=== PATIENT | male | born 1940 | race Caucasian/White ===

== ENCOUNTER → 2018-04-04 11:27 | Outpatient (CLI) | payer MEDICARE, BC, SELFPAY ==
[2018-04-04 11:37] LABS: Bacteria 0 SEEN /hpf (None Seen); Mucous, Urine 0 SEEN /hpf (<or=2+); Red Blood Cells-Urine 0 SEEN /hpf (0-5); White Blood Cells 0 SEEN /hpf (0-5)
[2018-04-04 14:40] LABS: Color, Urine Yellow (Yellow); Glucose, Dipstick 250 mg/dl (Normal); Ketone-Dipstick Negative (Negative); Leukocyte Esterase-Dipstick Negative /ul (Negative); Nitrite-Dipstick Negative (Negative); Occult Blood-Urine Negative /ul (Negative); Protein-Dipstick 30 mg/dl (Negative); Specific Gravity, Urine 1.025 (1.002-1.030); Urine Bilirubin Dipstick Negative (Negative); Urine Clarity Clear (Clear); Urine Urobilinogen Normal (Normal)
[2018-04-04 14:42] LABS: Absolute Lymphocyte Count 1.25 X10^3/ul (0.83-4.51); Absolute Neutrophil Count 3.9 X10^3/uL (2.0-7.7); Basophil# 0.03 X10^3/uL; Basophil% 0.5 % (0-1); Eosinophil# 0.09 X10^3/uL; Eosinophils% 1.6 % (0-5); Hematocrit 41.7 % (40-54); Hemoglobin 14.6 g/dl (13.0-16.5); Lymphocyte # 1.25 X10^3/ul (4.0); Lymphocyte % 21.9 % (19-41); Mean Corpuscular Hgb 32.9 pg (27.0-32.0); Mean Corpuscular Volume 93.9 fL (80-94); Mean Platelet Vol. 9.9 fl (6.2-12.0); Monocyte# 0.41 X10^3/uL; Monocyte% 7.2 % (0-10); Neutrophil % 68.3 % (47-70); Platelet Count 180 K/mm3 (150-450); RBC Distribution Width CV 13.3 % (11.6-14.6); RBC Distribution Width SD 43.9 fl (35.1-43.9); Red Blood Count 4.44 M/mm3 (4.6-6.2); White Blood Count 5.7 K/mm3 (4.4-11.0)
[2018-04-04 14:43] LABS: POSITIVE COUNT NO; POSITIVE DIFFERENTIAL NO; POSITIVE MORPHOLOGY NO
[2018-04-04 14:46] LABS: Squamous Epithelial Cells - UA 0-5 SEEN /hpf (0-5)
[2018-04-04 15:05] LABS: Vitamin B12 409 pg/mL (211-911)
[2018-04-04 15:07] LABS: Hemoglobin A1c 7.4 % (4.2-6.3)
[2018-04-04 15:16] LABS: Microalbumin:Creatinine Ratio 12.6 mg/g CRE (<30 mg/g CRE)
[2018-04-04 15:20] LABS: ALB/GLOB Ratio 1.1 RATIO (0.9-2.4); AST(SGOT) 24 U/L (15-37); Alanine Aminotransfer ALT/SGPT 35 U/L (16-61); Albumin, Serum 3.8 g/dL (3.2-5.0); Alkaline Phosphatase 91 U/L (45-117); Anion Gap 11 (5-15); BUN 14 mg/dL (7-18); BUN/Creat Ratio 12.4 RATIO (10-20); Chloride 104 mmol/L (98-107); Cholesterol 150 mg/dL (200); Creatinine, Serum 1.13 mg/dL (0.70-1.30); EST Glomerular Filtration Rate 67 mL/min (>60); Est Glom Filt Rate - Afr Amer 81 mL/min (>60); Globulin 3.6 g/dL (2.2-4.2); Glucose 191 mg/dL (74-106); High Density Lipoprotein 34 mg/dL; Magnesium 1.9 mg/dL (1.6-2.6); PSA,Total- Diagnostic < 0.01 ng/mL (0.0-4.0); Phosphorus 2.9 mg/dL (2.5-4.9); Potassium 4.2 mmol/L (3.5-5.1); Protein, Total 7.4 g/dL (6.4-8.2); Sodium Level 138 mmol/L (136-145); T4 Free Direct 0.76 ng/dL (0.76-1.46); Thyroid Stim Hormone (TSH) 3.57 uIU/mL (0.358-3.74); Triglycerides 355 mg/dL; Very Low Density Lipoprotein 71 mg/dL (5-40)
[2018-04-09 11:53] LABS: Vitamin B1, Thiamine 132.5 nmol/L (66.5-200.0)
== END ==
PROVIDERS: Visit Provider Family Medicine
DX: I10 Essential (primary) hypertension (principal); I48.91 Unspecified atrial fibrillation; E11.40 Type 2 diabetes mellitus with diabetic neuropathy, unspecified; E01.0 Iodine-deficiency related diffuse (endemic) goiter; Z85.46 Personal history of malignant neoplasm of prostate; G62.9 Polyneuropathy, unspecified
CPT/HCPCS: 36415; 80053; 80061; 81001; 82043; 82570; 82607; 83036; 83735; 84100; 84153; 84425; 84439; 84443; 85025

== ENCOUNTER → 2018-04-06 08:53 | Outpatient (CLI) | payer MEDICARE, SELFPAY ==
--- NOTE | 2018-04-06 09:01 | US_ITS ---
STUDY: THYROID ULTRASOUND REASON FOR EXAM: Male, 77 years old. Thyromegaly TECHNIQUE: Ultrasound evaluation of the thyroid was performed with real-time and static valdes-scale imaging. COMPARISON: None. FINDINGS: RIGHT LOBE: The right lobe of the thyroid gland measures 4.0 x 1.3 x 1.5 cm. There is a homogeneous echotexture. There are no demonstrated solid, cystic or complex lesions. LEFT LOBE: The left lobe of the thyroid gland measures 3.8 x 1.3 x 1.0 cm. There is a homogeneous echotexture. There are no demonstrated solid, cystic or complex lesions. ISTHMUS: The isthmus measures 6 mm . The regional lymph nodes are normal. US/Thyroid IMPRESSION: Normal ultrasound examination of the thyroid. Electronically Signed: Bayron Mckeon DO at 15:54 EDT Tel [phone], Service support ,
== END ==
PROVIDERS: Family Provider Family Medicine; PCP Family Medicine; Referring Provider Family Medicine; Visit Provider Family Medicine
DX: E01.0 Iodine-deficiency related diffuse (endemic) goiter (principal)
CPT/HCPCS: 76536

== ENCOUNTER → 2018-05-01 06:41 | Outpatient (CLI) | payer MEDICARE, SELFPAY ==
--- NOTE | 2018-05-01 06:52 | MRI_ITS ---
STUDY: MRI BRAIN WITH AND WITHOUT CONTRAST (ATTENTION PITUITARY GLAND) REASON FOR EXAM: Male, 77 years old. pituitary adenoma, ? prev stroke; prev mri 12/2017 TECHNIQUE: Standardized multiplanar fat and water weighted pulse sequences were obtained. 10 ml of Gadavist contrast material was administered intravenously for the contrast portion of the examination. COMPARISON: December 05, 2017 FINDINGS: Again noted. Sellar mass measuring 1.6 x 1.6 x 1.4 cm without change since prior examination. 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 Normal size of the ventricles and extra-axial spaces for the patient's age. There are a limited number of small white matter hyperintensities, distributed throughout the deep white matter tracts of the cerebral hemispheres, consistent with mild chronic white matter ischemic changes. Normal bilateral basal ganglia. Normal thalami. Normal flow voids within the major intracranial circulation suggesting patency by spin echo criteria. Normal venous enhancement. There is no enhancing intra-axial or extra-axial abnormality. There is no extra-axial fluid accumulation. Normal tectal plate and pineal gland. Normal midbrain, dwight and medulla. Normal cerebellum. Normal basal cisterns. MRI/Brain W/WO Contrast IMPRESSION: No acute intracranial abnormality. 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 Electronically Signed: Jl Pelayo MD at 16:07 EST Tel , Service support ,
[2018-05-01 07:50] LABS: CREATININE FINGERSTICK 1.2 mg/dL (0.70-1.30); EGFR FINGERSTICK > 60.0000 mL/min (>60)
--- OUTSIDE RECORDS SUMMARY | 2018-06-12 19:41 | XMS RPT_ITS ---
:1940 Author Organization OHIP Care Team Providers Name Role Phone Dawson De La Rosa Attending Unavailable Dawson De La Rosa Attending Unavailable Dawson De La Rosa Referring Unavailable Dawson De La Rosa Primary Care Unavailable Dawson De La Rosa Attending Unavailable Dawson De La Rosa Referring Unavailable Dawson De La Rosa Primary Care Unavailable Ratna Castro Attending Unavailable Jordy Araujo Attending Unavailable PROBLEMS PROBLEMS DATE TYPE CONDITION / CODE ATTENDING STATUS SOURCE 05/21/2018 Unknown I10 - Essential Jordy Araujo (primary) Community hypertension / Hospital I10(ICD-10) Repository 05/21/2018 Unknown I25.10 - Jordy Araujo Active [facility] Atherosclerotic heart Community disease of [facility] coronary artery Repository without angina pectoris / I25.10(ICD-10) 05/21/2018 Unknown I48.0 - Paroxysmal MoodJordy kline Active [facility] atrial fibrillation / Community I48.0(ICD-10) Hospital Repository 05/21/2018 Unknown E78.5 - Jordy Araujo Active [place] Hyperlipidemia, Community unspecified / Hospital E78.5(ICD-10) Repository 05/04/2018 Unknown E01.0 - Dawosn De La Rosa Active [facility] 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 [place] [address] OFFICE VISIT Date of Service: 05/03/18 MR#: [id number] Acct: [id number] Name: MONTSERRAT ARVIZU Rep #: [id number] : 1940 Provider: Jordy Araujo MD Age/Sex: 77/M [place] [facility] Signed HPI HPI Details: MONTSERRAT ARVIZU, is a 77 M who presents to the office today for outpatient cardiovascular consultation to establish care for history of underlying CAD/intramyocardial bridge as well as paroxysmal atrial fibrillation. He states while living in [place] he underwent evaluation and care for the aforementioned concerns. He noted he had concerns of chest discomfort and palpitations which led over time to his different cardiovascular evaluation. At the present time he states he is done well. He states he can sense when he goes in and out of atrial fibrillation. However he states these episodes have been relatively rare and brief. He has had no near syncope or syncope. He does not complain of ongoing chest discomfort or difficulty breathing. He has had no falling episodes/injuries. He did have an ECG today. He was noted to be in sinus rhythm with a first-degree AV block with a leftward axis with poor R wave progression. An ECG from 09/13/2017 was available for review which demonstrated that time a report of atrial flutter with variable AV block with a left axis deviation. It appears he had an event monitor in September of this year. At that time he was noted to have 2 episodes of atrial fibrillation with controlled ventricular response. It also appears that he had a stress echocardiogram performed in September of this year. Based upon the impression he had no evidence of myocardial ischemia or infarction. The left ventricle was reported as normal with respect to function. There are comments and previous outpatient medical records from his previous physicians in [place] that he had a history of CAD which included an intramyocardial bridge. He required no type of interventional/revascularization therapy. Intake Vital Signs05/03/18 Height 6 ft 2 in 05/03/18 Weight: 244 lb 05/03/18 Body Mass Index (BMI) 31.3 05/03/18 Blood Pressure 124/60 H Intake Visit Reasons: A-fib/ HTN/ Ref. Dr. De La Rosa Allergies No Known Allergies Allergy (Verified 05/03/18 14:05) Medications B-complex with vitamin C capsule 1 cap PO DAILY 05/03/18 [History Confirmed 05/03/18] apixaban 5 mg tablet 5 mg PO BID 05/03/18 [History Confirmed 05/03/18] glipizide 10 mg tablet 10 mg PO BID 05/03/18 [History Confirmed 05/03/18] lisinopril 20 mg tablet 30 mg PO DAILY tab 05/03/18 [History Confirmed 05/03/18] magnesium oxide 400 mg capsule 400 mg PO DAILY cap 05/03/18 [History Confirmed 05/03/18] metformin ER 500 mg tablet,extended release 24 hr 500 mg PO BID tab 05/03/18 [History Confirmed 05/03/18] metoprolol tartrate 25 mg tablet 12.5 mg PO BID tab 05/03/18 [History Confirmed 05/03/18] potassium chloride ER 10 mEq tablet,extended release 10 meq PO DAILY 05/03/18 [History Confirmed 05/03/18] pravastatin 20 mg tablet 20 mg PO DAILY 05/03/18 [History Confirmed 05/03/18] primidone 50 mg tablet 50 mg PO BID tab 05/03/18 [History Confirmed 05/03/18] sitagliptin 100 mg tablet 100 mg PO DAILY 05/03/18 [History Confirmed 05/03/18] [facility] Medical History Paroxysmal atrial fibrillation (Chronic) Atherosclerotic heart disease of [place] coronary artery without angina pectoris (Chronic) Type 2 diabetes mellitus (Chronic) Diabetic neuropathy (Chronic) Essential hypertension (Chronic) Essential tremor (Acute) History of stroke (Acute) History of prostate cancer (Chronic) Pituitary adenoma (Chronic) Atrial fibrillation (Inactive) Surgical History History of cataract surgery (Resolved) History of prostate surgery (Resolved) Family History Mother CVA (cerebral vascular accident) Hypertension Heart disease Father CVA (cerebral vascular accident) Cancer Liver Social History Smoking Status: Never smoker alcohol intake: never substance use type: does not use ROS Const Const: Negative for fatigue, weakness, weight gain, weight loss, frequent falls or excessive sweating Eyes Eyes: Negative for change in vision, blurry vision or transient loss of vision ENT ENT: Positive for dizziness (bending over, moving head up/down) and balance problems (unsteadiness, diabetic neuropathy) Cardio Chest Pain: No Palpitations: Yes (Rare) feels like its: irregular Edema: None Muscle aches with walking: None Resp Respiratory: Negative for SOB with activity or SOB at rest GI GI: Negative vomiting or vomiting blood/hematemesis : Negative for hematuria Musc Musc: Positive for balance problems (unsteadiness, diabetic neuropathy) and muscle weakness (bilat LE); negative for muscle aches/ myalgia or joint pain Skin Skin: Negative non-healing lesions or rash Neuro Neuro: Positive for dizziness (bending over, moving head up/down) and other (couple falls w/o injury due to diabetic neuropathy); negative for weakness, blurry vision, lightheadedness, frequent falls or orthostatic symptoms [place] Hematologic/Lymphatic: Negative for easy bleeding Endo Endo: Negative for fatigue or excessive sweating Psych Psych: Negative for anxiety or depression Allergy Allergy/Immunology: Negative for hives, Negative for rash Cardiology Exam Const Appearance: cooperative, healthy appearing, comfortable, no acute distress, well developed and well groomed Nutritional Appearance: overweight Orientation: alert, awake and oriented x3 Head Head: normal to inspection, normocephalic and atraumatic Ears: hearing grossly normal bilaterally Nose: external nose normal Face and Sinus: face symmetric Mouth: oral mucosae normal Eyes Eyelids: eyelids normal Conjunctivae: conjunctivae normal Pupils: PERRL EOM: EOM intact bilaterally Neck Neck: normal visual inspection and full ROM Carotids: normal carotid upstroke Chest Chest inspection: normal inspection of the chest, symmetric chest movement and normal respiratory effort Auscultation: Bilateral: Clear to Auscultation Cardio Palpation: normal PMI Rate: regular rate Rhythm: regular rhythm Heart sounds: S1 normal and S2 normal GI GI: normal to inspection, bowel sounds present and soft Neuro General: alert, awake, oriented x3, moves all extremities, no focal sensory deficit and no focal motor deficits Skin Skin: no rashes or lesions noted Extremities Pulses: Normal: Right Radial Pulse, Left Radial Pulse Lower Extremity Edema: None: Bilateral Psych Psychological: normal affect Assessment AND Plan 1. Atherosclerosis of [place] coronary artery of [place] heart without angina pectoris I25.10 MILD per cath 07/11/05 Plan At the present time based upon his previous reports it appears he had some element of CAD although non-angiographically significant and a potential intramyocardial bridging segment that did not require further cardiac evaluation or care. He does continue to need appropriate risk factor evaluation or care. Certainly if he has any other concerns he may need to undergo repeat diagnostic studies and/or therapeutic intervention. Orders Orders: 2. Paroxysmal atrial fibrillation I48.0 Plan He does have a history of paroxysmal atrial fibrillation. He has been on rate control therapy and anticoagulant therapy. It will be continued. If he has recurrent events he may need to be considered for antiarrhythmic therapy Orders Orders: 3. Hyperlipidemia, unspecified hyperlipidemia type E78.5 Plan He is on lipid-lowering medical therapy. His lipids were evaluated in March of this year. His total cholesterol and LDL cholesterol appear to be under reasonably good control at 150 and 45 respectively. His HDL cholesterol was somewhat low at 34. His triglycerides were elevated which may go along with concerns he has with respect to hyperglycemia 4. Essential hypertension I10 Plan His blood pressure appears to be under good control as well. Plan Detail Additional Comments Overall at the present time it does not appear he requires further cardiac diagnostic studies or therapeutic intervention at this time. He will be scheduled for an outpatient visit in approximately 6 months unless needed sooner. Thank you for allowing me to participate in the care of your patient. Please don't hesitate to call if any issues arise. This note was generated using a voice recognition system and there may be incorrect words, spelling or punctuation that were not noted when reviewing the office note prior to saving. Follow Up 6 Months (with PFM) Coding Level of Care Code Off vis,new,level 3 Diagnoses Atherosclerosis of [place] coronary artery of [place] heart without angina pectoris I25.10 [place] vs. transplanted heart: [place] heart Paroxysmal atrial fibrillation I48.0 Hyperlipidemia, unspecified hyperlipidemia type E78.5 Hyperlipidemia type: unspecified Essential hypertension I10 Coding Level of Care Code Off vis,new,level 3 Diagnoses Atherosclerosis of [place] coronary artery of [place] heart without angina pectoris I25.10 [place] vs. transplanted heart: [place] heart Paroxysmal atrial fibrillation I48.0 Hyperlipidemia, unspecified hyperlipidemia type E78.5 Hyperlipidemia type: unspecified Essential hypertension I10 05/03/18 1456 <Electronically signed by Jordy Araujo MD> Date Jordy Araujo MD Cosigner Signature: Date (if applicable) CC: Dawson De La Rosa MD 12 LEAD EKG PERFORMED Observed: 05/03/2018 Status: F Source: [place] [facility] 2:02 PM [facility] REPOSITORY [address] [place] [address] 12 Lead EKG performed by [facility] 05/03/18 1401 MR#: [id number] Acct: [id number] Name: MONTSERRAT ARVIZU Rep #: [id number] : 1940 77 From: Jordy Araujo MD Attending Dr: Jordy Araujo MD Status: DEP AMB Ordering Dr: Jordy Araujo MD Date: 05/03/18 [place] [facility] M C Admitted: [facility]/12 Lead EKG performed by [facility] ECG Report Interpretation Sinus Rhythm -First degree A-V block Leftward axisPoor R wave progressionElectronically signed on 05/03/2018 at 15:00 by Jordy Araujo Software Version 8610 05/03/18 1504 Date Jordy Araujo MD CC: Date Dictated: 05/03/181400 Date Transcribed: 05/03/181400 Public Health Director: PM Signed CREATININE FINGERSTICK Collected: 05/01/2018 Status: F Source: [facility] 7:14 AM [facility] REPOSITORY TYPE CODE TESTS RESULT OUT OF RANGE REFERENCE UNITS LAB L9100.0210 0.70-1.30 mg/dL Normal CREATININE WB 1.2 LAB L9100.0220 >60 mL/min EGFR WB Normal > 60.0000 Performed By: #### L9100.0200 #### [facility] [place] [facility] Laboratory Point of Care [address] [place] [address] BRAIN W/WO CONTRAST Observed: 05/01/2018 Status: F Source: [facility] 6:52 AM [facility] REPOSITORY [facility] Imaging Services [address] [place] [address] Brain W/WO Contrast MR#: [id number] Acct: [id number] Name: NEELAKATIMONTSERRAT Aldair Rep #: [id number] : 1940 77 From: Jl Pelayo PCP: Dawson De La Rosa MD Status: REG CLI Study: Brain W/WO Contrast Date of Exam: 05/01/18 Exam# [id number] Ordering Dr: Dawson De La Rosa MD STUDY: MRI BRAIN WITH AND WITHOUT CONTRAST (ATTENTION PITUITARY GLAND) REASON FOR EXAM: Male, 77 years old. pituitary adenoma, ? prev stroke; prev mri 12/2017 TECHNIQUE: Standardized multiplanar fat and water weighted pulse sequences were obtained. 10 ml of Gadavist contrast material was administered intravenously for the contrast portion of the examination. COMPARISON: December 05, 2017 FINDINGS: Again noted. Sellar mass measuring 1.6 x 1.6 x 1.4 cm without change since prior examination. 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 Normal size of the ventricles and extra-axial spaces for the patient's age. There are a limited number of small white matter hyperintensities, distributed throughout the deep white matter tracts of the cerebral hemispheres, consistent with mild chronic white matter ischemic changes. Normal bilateral basal ganglia. Normal thalami. Normal flow voids within the major intracranial circulation suggesting patency by spin echo criteria. Normal venous enhancement. There is no enhancing intra-axial or extra-axial abnormality. There is no extra-axial fluid accumulation. Normal tectal plate and pineal gland. Normal midbrain, dwight and medulla. Normal cerebellum. Normal basal cisterns. MRI/Brain W/WO Contrast IMPRESSION: No acute intracranial abnormality. 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 Electronically Signed: Jl Pelayo MD at 16:07 EST Tel , Service support , CC: Dawson De La Rosa MD Public Health Director: Signed THYROID Observed: 04/06/2018 Status: F Source: [place] 9:01 AM [facility] REPOSITORY [facility] Imaging Services [address] [place] [address] Thyroid MR#: [id number] Acct: [id number] Name: MONTSERRAT ARVIZU Rep #: [id number] : 1940 M 77 From: Bayron Mckeon DO PCP: Dawson De La Rosa MD Status: REG CLI Study: Thyroid Date of Exam: 04/06/18 Exam# [id number] Ordering Dr: Dawson De La Rosa MD STUDY: THYROID ULTRASOUND REASON FOR EXAM: Male, 77 years old. Thyromegaly TECHNIQUE: Ultrasound evaluation of the thyroid was performed with real-time and static valdes-scale imaging. COMPARISON: None. FINDINGS: RIGHT LOBE: The right lobe of the thyroid gland measures 4.0 x 1.3 x 1.5 cm. There is a homogeneous echotexture. There are no demonstrated solid, cystic or complex lesions. LEFT LOBE: The left lobe of the thyroid gland measures 3.8 x 1.3 x 1.0 cm. There is a homogeneous echotexture. There are no demonstrated solid, cystic or complex lesions. ISTHMUS: The isthmus measures 6 mm . The regional lymph nodes are normal. US/Thyroid IMPRESSION: Normal ultrasound examination of the thyroid. Electronically Signed: Bayron Mckeon DO at 15:54 EDT Tel [phone], Service support , CC: Dawson De La Rosa MD Public Health Director: Signed URINALYSIS, COMPLETE Collected: 04/04/2018 Status: F Source: [place] 11:33 AM [facility] REPOSITORY Order Comment: How was Urine Obtained? CLEAN CATCH TYPE CODE TESTS RESULT OUT OF RANGE REFERENCE UNITS LAB L400.3000 Yellow COLOR Normal Yellow LAB L400.3050 Clear Normal CLARITY Clear LAB L400.3200 Normal mg/dl High GLUCOSE, UR 250 LAB L400.3300 Negative mg/dL Normal BILIRUBIN URINE Negative LAB L400.3400 Negative mg/dl Normal KETONE UR Negative LAB L400.3465 1.002-1.030 Normal SP.GR. DIPSTX 1.025 LAB L400.3550 5.0 - 8.0 pH UR Normal 5.0 LAB L400.3600 Negative mg/dl High PROT 30 DIPSTX LAB L400.3700 Normal mg/dl Normal UROBILI Normal LAB L400.3750 Negative Normal NITRITE UR Negative LAB L400.3780 Negative /ul Normal OCCULT BLOOD-UR Negative LAB L400.3800 Negative /ul LEUK Normal ESTERASE Negative LAB L400.4050 0-5 /hpf WBC 0 Normal SEEN LAB L400.4100 0-5 /hpf 0 Normal RBC-UA SEEN LAB L400.4150 0-5 /hpf SQUAM Normal EPI 0-5 SEEN LAB L400.4300 None Seen /hpf 0 Normal BACTERIA SEEN LAB L400.4350 <or=2+ /hpf 0 Normal MUCUS, URINE SEEN Performed By: #### L400.0001 #### [facility] [place] [facility] [address] [place], [address] CBC W/DIFF, AUTOMATED Collected: 04/04/2018 Status: F Source: [facility] 11:33 AM [facility] REPOSITORY TYPE CODE TESTS RESULT OUT OF RANGE REFERENCE UNITS LAB L100.1000 4.4-11.0 K/mm3 Normal WBC 5.7 LAB L100.1200 4.6-6.2 M/mm3 Low RBC 4.44 LAB L100.1300 13.0-16.5 g/dl Normal HGB 14.6 LAB L100.1400 40-54 % Normal HCT 41.7 LAB L100.1500 80-94 fL Normal MCV 93.9 LAB L100.1600 27.0-32.0 pg High MCH 32.9 LAB L100.1700 32-36 g/gl Normal MCHC 35.0 LAB L100.1810 11.6-14.6 % Normal RDW CV 13.3 LAB L100.1820 35.1-43.9 fl Normal RDW SD 43.9 LAB L100.1900 150-450 K/mm3 Normal PLT 180 LAB L100.2000 6.2-12.0 fl Normal MPV 9.9 LAB L100.2100 47-70 % Normal NEUT% 68.3 LAB L100.2200 19-41 % Normal LY% 21.9 LAB L100.2300 0-10 % Normal MONO% 7.2 LAB L100.2400 0-5 % Normal EO% 1.6 LAB L100.2500 0-1 % Normal BASO% 0.5 LAB L100.2550 0.0-0.9 % Normal IM GRAN % 0.500 Result Comment: IG% - Immature Granulocytes (promyelocytes, myelocytes and metamyelocytes) > 1% indicates that a LEFT SHIFT is Present. LAB L100.2620 2.0-7.7 X10 3/uL Normal Absolute Neut 3.9 LAB L100.2720 0.83-4.51 X10 3/ul Normal Absolute Lymph 1.25 Performed By: #### L100.0100, L503.0105, L501.9985, L502.0250, L500.4050, L500.4100, L501.5200, L501.9520, L501.9940 #### [facility] [place], [address] VITAMIN B12 Collected: 04/04/2018 Status: F Source: [place] 11:33 AM [facility] REPOSITORY TYPE CODE TESTS RESULT OUT OF RANGE REFERENCE UNITS LAB L503.0105 211-911 pg/mL Normal Vitamin B12 409 Performed By: #### L100.0100, L503.0105, L501.9985, L502.0250, L500.4050, L500.4100, L501.5200, L501.9520, L501.9940 #### [facility] [place] [facility] [address] [place], [place], [id number] HEMOGLOBIN A1C Collected: 04/04/2018 Status: F Source: [place] 11:33 AM [facility] REPOSITORY TYPE CODE TESTS RESULT OUT OF RANGE REFERENCE UNITS LAB L501.9985 4.2-6.3 % High HGB A1C 7.4 Performed By: #### L100.0100, L503.0105, L501.9985, L502.0250, L500.4050, L500.4100, L501.5200, L501.9520, L501.9940 #### [facility] [place] [facility] [address] [place], [place], [id number] MICROALB:CREAT Collected: 04/04/2018 Status: F Source: [facility] [place]OM UR 11:33 AM [facility] REPOSITORY TYPE CODE TESTS RESULT OUT OF RANGE REFERENCE UNITS LAB L501.1200 NO RANGE EST. mg/dL Normal UR CREAT 191.00 LAB L502.0500 NO RANGE EST. mg/L Normal 24.0 MICROALBUMIN ,UR LAB L502.0600 <30 mg/g CRE mg/g CRE Normal 12.6 MALB:CREAT Performed By: #### L100.0100, L503.0105, L501.9985, L502.0250, L500.4050, L500.4100, L501.5200, L501.9520, L501.9940 #### [facility] [place] [facility] [address] [place], [place], [id number] COMPREHENSIVE METABOLIC Collected: 04/04/2018 Status: F Source: [facility] PROFIL 11:33 AM [facility] REPOSITORY TYPE CODE TESTS RESULT OUT OF RANGE REFERENCE UNITS LAB L501.0100 74-106 mg/dL High GLU 191 Result Comment: Fasting Glucose result greater than or equal to 126 mg/dL suggests DIABETES MELLITUS per A.D.A. criteria. Please note revised GLUCOSE reference range effective 2017. LAB L501.1000 7-18 mg/dL Normal BUN 14 LAB L501.1100 0.70-1.30 mg/dL Normal CREAT,SERUM 1.13 Result Comment: The validity of the calculated GFR AND GFRAA in patients over 70 years has not been determined. Clinical correlation is essential. LAB L501.1110 >60 mL/min Normal EST GFR 67 Result Comment: Non- GFR Calc LAB L501.1115 >60 mL/min Normal EST GFR - AA 81 Result Comment: GFR Calc LAB L501.1300 10-20 RATIO Normal BUN/CRE 12.4 LAB L501.1500 6.4-8.2 g/dL T Normal PROT 7.4 LAB L501.1800 3.2-5.0 g/dL Normal ALB 3.8 LAB L501.1950 2.2-4.2 g/dL Normal GLOB 3.6 LAB L501.2000 0.9-2.4 RATIO Normal A/G 1.1 LAB L501.2200 8.5-10.1 mg/dL CA Normal 9.0 LAB L501.4100 15-37 U/L Normal AST 24 Result Comment: Slight Hemolysis, Result may be falsely increased. LAB L501.4305 45-117 U/L Normal ALK P 91 LAB L501.4405 16-61 U/L Normal ALT 35 LAB L501.4600 0.20-1.00 mg/dL Normal T BILI 0.80 LAB L501.5300 136-145 mmol/L Normal NA 138 LAB L501.5600 3.5-5.1 mmol/L Normal K 4.2 Result Comment: Slight Hemolysis, Result may be falsely increased. LAB L501.5900 98-107 mmol/L Normal CL 104 LAB L501.6100 21.0-32.0 mmol/L Normal CO2 23.0 LAB L501.6200 5-15 Normal GAP 11 Performed By: #### L100.0100, L503.0105, L501.9985, L502.0250, L500.4050, L500.4100, L501.5200, L501.9520, L501.9940 #### [facility] [place] [facility] [address] [place], [place], [id number] LIPID PROFILE Collected: 04/04/2018 Status: F Source: [place] 11:33 AM [facility] REPOSITORY TYPE CODE TESTS RESULT OUT OF RANGE REFERENCE UNITS LAB L501.4900 200 mg/dL Normal CHOL 150 Result Comment: <200 mg/dL Desirable 200-240 mg/dL Borderline >240 mg/dL High Risk LAB L501.5000 mg/dL High TRIG 355 Result Comment: The drugs N-Acetylcysteine and Metamizole may falsely depress this assay. Serum Triglycerides Reference Interval Normal <150 mg/dL Borderline high 150 - 199 mg/dL High 200 - 499 mg/dL Very High > or = 500 mg/dL LAB L501.6400 mg/dL Low HDL 34 Result Comment: The drugs N-Acetylcysteine and Metamizole may falsely depress this assay. Reference Range HDL <40 mg/dL Low HDL Cholesterol HDL >or= 60 mg/dL High HDL Cholesterol LAB L501.6500 0-130 mg/dL Normal LDL 45 LAB L501.6600 5-40 mg/dL High VLDL 71 Performed By: #### L100.0100, L503.0105, L501.9985, L502.0250, L500.4050, L500.4100, L501.5200, L501.9520, L501.9940 #### [facility] [place] [facility] [address] [place], [place], [address] MAGNESIUM Collected: 04/04/2018 Status: F Source: [place] 11:33 AM [facility] REPOSITORY TYPE CODE TESTS RESULT OUT OF RANGE REFERENCE UNITS LAB L501.5200 1.6-2.6 mg/dL Normal MG 1.9 Result Comment: Slight Hemolysis, Result may be falsely increased. Performed By: #### L100.0100, L503.0105, L501.9985, L502.0250, L500.4050, L500.4100, L501.5200, L501.9520, L501.9940 #### [facility] [place] [facility] [address] [place], [address] THYROID STIM HORMONE Collected: 04/04/2018 Status: F Source: [place] (TSH) 11:33 AM [facility] REPOSITORY TYPE CODE TESTS RESULT OUT OF RANGE REFERENCE UNITS LAB L501.9520 0.358-3.74 uIU/mL Normal TSH 3.57 Performed By: #### L100.0100, L503.0105, L501.9985, L502.0250, L500.4050, L500.4100, L501.5200, L501.9520, L501.9940 #### [facility] [place] [facility] [address] [place], [place], [id number] PSA,TOTAL- DIAGNOSTIC Collected: 04/04/2018 Status: F Source: [place] 11:33 AM [facility] REPOSITORY TYPE CODE TESTS RESULT OUT OF RANGE REFERENCE UNITS LAB L501.9940 0.0-4.0 ng/mL PSA, Normal DIAGNOSTIC < 0.01 Result Comment: This test was performed using the TPSA assay method for the [employer] chemistry system. Values obtained with different assay methods cannot be used interchangably. When changing PSA assays in the course of monitoring a patient, additional sequential testing should be carried out to confirm baseline values. Performed By: #### L100.0100, L503.0105, L501.9985, L502.0250, L500.4050, L500.4100, L501.5200, L501.9520, L501.9940 #### [facility] [place] [facility] [address] [place], [address] PHOSPHORUS Collected: 04/04/2018 Status: F Source: [place] 11:33 AM [facility] REPOSITORY TYPE CODE TESTS RESULT OUT OF RANGE REFERENCE UNITS LAB L501.2300 2.5-4.9 mg/dL Normal PHOS 2.9 Performed By: #### L501.2300 #### [facility] [place] [facility] [address] [place], [address] T4 FREE DIRECT Collected: 04/04/2018 Status: F Source: [place] 11:33 AM [facility] REPOSITORY TYPE CODE TESTS RESULT OUT OF RANGE REFERENCE UNITS LAB L506.0400 0.76-1.46 ng/dL Normal T4 FREE 0.76 DIRECT Performed By: #### L506.0400 #### [facility] [place] [facility] [address], [address] VITAMIN B1, THIAMINE Collected: 04/04/2018 Status: F Source: [place] 11:33 AM [facility] REPOSITORY Order Comment: Comments: [id number] B6 EDTA PLASMA FZ NO LIGHT TYPE CODE TESTS RESULT OUT OF RANGE REFERENCE UNITS LAB L3300.8000 66.5-200.0 nmol/L Normal VIT B1 132.5 Result Comment: This test was developed and its performance characteristics determined by [facility]. It has not been cleared or approved by the Food and Drug Administration. Performed at: [address] [id number] Line Repairer: Morgan Pappas MD, Phone: [phone] Performed By: #### L3300.8000 #### [facility] (refer to report for specific site) refer to report for address and phone number MISCELLANEOUS LAB Collected: 04/04/2018 Status: F Source: [place] PROCEDURE 11:33 AM [facility] REPOSITORY Order Comment: Comments: [id number] B6 EDTA PLASMA FZ NO LIGHT Test(s) Ordered: [id number] B6 EDTA PLASMA FZ NO LIGHT TYPE CODE TESTS RESULT OUT OF RANGE REFERENCE UNITS LAB L801.1541 Normal [facility] Result Comment: TEST RESULT UNITS REFERENCE INTERVAL Vitamin B6, Plasma 5.4 ug/L 5.3 - 46.7 Disclaimer: This test was developed and its performance characteristics determined by [facility]. It has not been cleared or approved by the U.S. Food and Drug Administration. TESTING PERFORMED AT [facility]. ORIGINAL REPORT ON FILE IN LAB CONTAINS ADDITIONAL TEST SITE INFORMATION. Performed By: #### L801.1541 #### [facility] [place] [facility] [address] [place], [address] ALLERGIES ALLERGIES DATE TYPE / CODE NAME / CODE REACTION SEVERITY SOURCE 05/03/2018 Drug No Known Unknown [facility] Allergy/4160 Allergies/F00 Hospital 36614(SNOMED 7090006(RXNOR Repository CT) M) ENCOUNTERS ENCOUNTERS ADMIT/DISCHARGE ACCOUNT ADMITTING ENCOUNTER LOCATION SOURCE NUMBER CLASS 05/03/2018/ [id number] Ambulatory BMSBuilding:B [place] 8 3 [facility] Repository 05/03/2018 [id number] Ambulatory BMSBuilding:B [place] 3 [facility] Repository 05/01/2018 [id number] Ambulatory [place] 3 [facility] ing:[facility] Repository 04/06/2018 [id number] Ambulatory [place] 4 [facility] ing:[place] Repository 04/04/2018 [id number] Ambulatory [place] 1 [facility] ing:MFPLAB Repository PAYERS PAYERS ENCOUNTER GUARANTOR PAYER SUBSCRIBER SOURCE 05/03/2018 [place] Primary [place] [id number] Insurance:GUMARO KHANOB: [facility] [employer] MEDICARE SENIOR [id number] ADVANTAPolicy Number: Repository [id number]: [phone] [id number] [phone] () Date:[id number] [address]HX: 05/03/2018 Secondary NOT GIVENUNK [place] Insurance:SELF PAY [facility] Number: Effective Repository Date:2018-05-03 05/03/2018 [place] E Primary [place] E [place] [id number] Insurance:GUMARO KHANOB: Community [employer] MEDICARE SENIOR [id number] ADVANTAPolicy Number: Repository [id number]: [phone] [id number] [phone] (HP) Date:[id number] [address] [place] [address]101[address]VN: 05/03/2018 Secondary NOT GIVENUNK [place] Insurance:SELF PAY [facility] Number: Effective Repository Date:2018-05-03 05/01/2018 [place] E Primary [place]ERR[place] E [place] [id number] Insurance:GUMARO KHANOB: Community [employer] MEDICARE SENIOR [id number] ADVANTAPolicy Number: Repository [id number]: ([phone] [id number] [phone] (HP) Date:[id number] [address] [place] [address] 90757FY: 05/01/2018 Secondary NOT GIVENUNK [place] Insurance:SELF PAY [facility] Number: Effective Repository Date:2018-04-25 04/06/2018 [place] E Primary [place] [id number] Insurance:GUMARO KHANOB: Community [employer] MEDICARE PPOPolicy [id number], [place] Number: Repository [id number]: [phone] [id number] [phone] (HP) Date:[id number] [address] [address]EQ: 04/06/2018 Secondary NOT GIVENUNK [place] Insurance:SELF PAY [facility] Number: Effective Repository Date:2018-04-04 04/04/2018 MON[place] E Primary [place] E [place] [id number] Insurance:GUMARO KHANOB: Community [employer] MEDICARE SENIOR [id number] [place] ADVANTAPolicy Number: Repository [id number]: [id number] [phone] (HP) Date:[id number] [address] [place] [address]PT: 04/04/2018 Secondary NOT GIVENUNK [place] Insurance:SELF PAY [facility] Number: Effective Repository Date:2018-04-04
== END ==
PROVIDERS: Family Provider Family Medicine; PCP Family Medicine; Referring Provider Family Medicine; Visit Provider Family Medicine
DX: Z01.812 Encounter for preprocedural laboratory examination (principal); D35.2 Benign neoplasm of pituitary gland
CPT/HCPCS: 70553; A9585

== ENCOUNTER → 2018-07-16 09:54 | Outpatient (CLI) | payer MEDICARE, SELFPAY ==
[2018-05-03 14:05] VITALS: BMI 31.3
[2018-07-16 09:59] LABS: Red Blood Cells-Urine 0 SEEN /hpf (0-5); Squamous Epithelial Cells - UA 0 SEEN /hpf (0-5); White Blood Cells 0 SEEN /hpf (0-5)
[2018-07-16 11:59] LABS: Color, Urine Yellow (Yellow); Glucose, Dipstick Normal (Normal); Ketone-Dipstick 5 mg/dl (Negative); Leukocyte Esterase-Dipstick 25 /ul (Negative); Nitrite-Dipstick Negative (Negative); Occult Blood-Urine 10 /ul (Negative); Protein-Dipstick Negative (Negative); Specific Gravity, Urine 1.025 (1.002-1.030); Urine Clarity Clear (Clear); Urine Urobilinogen Normal (Normal)
[2018-07-16 12:01] LABS: Absolute Lymphocyte Count 1.09 X10^3/ul (0.83-4.51); Absolute Neutrophil Count 6.5 X10^3/uL (2.0-7.7); Basophil# 0.02 X10^3/uL; Basophil% 0.2 % (0-1); Hematocrit 42.1 % (40-54); Hemoglobin 14.3 g/dl (13.0-16.5); Lymphocyte # 1.09 X10^3/ul (4.0); Lymphocyte % 13.1 % (19-41); Mean Corpuscular Hgb 32.4 pg (27.0-32.0); Mean Corpuscular Volume 95.5 fL (80-94); Mean Platelet Vol. 10.4 fl (6.2-12.0); Monocyte# 0.72 X10^3/uL; Monocyte% 8.7 % (0-10); Neutrophil # 6.46 X10^3/uL (2.7-7.7); Neutrophil % 77.8 % (47-70); Platelet Count 193 K/mm3 (150-450); RBC Distribution Width CV 13.6 % (11.6-14.6); Red Blood Count 4.41 M/mm3 (4.6-6.2); White Blood Count 8.3 K/mm3 (4.4-11.0)
[2018-07-16 12:02] LABS: POSITIVE COUNT NO; POSITIVE DIFFERENTIAL NO; POSITIVE MORPHOLOGY NO
[2018-07-16 12:03] LABS: Urine Bilirubin Dipstick 1 mg/dL (Negative)
[2018-07-16 12:10] LABS: Bacteria RARE /hpf (None Seen); Mucous, Urine 1+ /hpf (<or=2+)
[2018-07-16 12:20] LABS: Hemoglobin A1c 7.8 % (4.2-6.3)
[2018-07-16 12:25] LABS: Microalbumin,Random Urine 28.9 mg/L (NO RANGE EST.); Microalbumin:Creatinine Ratio 8.3 mg/g CRE (<30 mg/g CRE)
[2018-07-16 13:10] LABS: ALB/GLOB Ratio 1.3 RATIO (0.9-2.4); AST(SGOT) 21 U/L (15-37); Alanine Aminotransfer ALT/SGPT 31 U/L (16-61); Albumin, Serum 3.9 g/dL (3.2-5.0); Alkaline Phosphatase 89 U/L (45-117); Anion Gap 13 (5-15); BUN 15 mg/dL (7-18); BUN/Creat Ratio 13.8 RATIO (10-20); Calcium,Total 9.1 mg/dL (8.5-10.1); Chloride 104 mmol/L (98-107); Cholesterol 117 mg/dL (200); Creatinine, Serum 1.09 mg/dL (0.70-1.30); EST Glomerular Filtration Rate 70 mL/min (>60); Est Glom Filt Rate - Afr Amer 84 mL/min (>60); Globulin 3.1 g/dL (2.2-4.2); Glucose 161 mg/dL (74-106); High Density Lipoprotein 36 mg/dL; Magnesium 1.9 mg/dL (1.6-2.6); Potassium 4.1 mmol/L (3.5-5.1); Sodium Level 140 mmol/L (136-145); Triglycerides 201 mg/dL; Very Low Density Lipoprotein 40 mg/dL (5-40)
== END ==
PROVIDERS: Family Provider Family Medicine; PCP Family Medicine; Visit Provider Family Medicine
DX: E11.9 Type 2 diabetes mellitus without complications (principal); I48.91 Unspecified atrial fibrillation; Z86.73 Personal history of transient ischemic attack (TIA), and cerebral infarction without residual deficits
CPT/HCPCS: 36415; 80053; 80061; 81001; 82043; 82570; 83036; 83735; 85025

== ENCOUNTER 2018-08-03 19:25 | Emergency (ER) | payer MEDICARE, SELFPAY ==
[2018-05-03 14:05] VITALS: BMI 31.3
[2018-08-03 19:25] VITALS: BP 141/86; PULSE 78; RESP 22; TEMP 36.4; O2SAT 94; BMI 30.5
--- NOTE | 2018-08-03 20:00 | RAD_ITS ---
STUDY: X-RAY - UNILATERAL RIBS ( RIGHT ) WITH CHEST REASON FOR EXAM: Male, 78 years old. Fall TECHNIQUE - RIBS: 4 view(s) of the ribs. TECHNIQUE - CHEST: Single frontal view COMPARISON: None. FINDINGS - RIBS: Normal visualized ribs without a demonstrated fracture. FINDINGS - CHEST: The lungs are clear and expanded. There is no demonstrated pleural abnormality. Normal size heart. Normal mediastinum and alex. Normal visualized pulmonary arteries. Normal visualized aortic arch and descending thoracic aorta. Degenerative changes of the thoracic spine. Surgical fusion of the lower cervical levels. Normal visualized ribs, clavicles, and shoulders. There is no demonstrated abnormality of the visualized soft tissue structures of the upper abdomen. RAD/Ribs Uni Min 3V w/PA Chest IMPRESSION: RIBS: Normal x-ray examination of the ribs. CHEST: Normal x-ray examination of the chest. Electronically Signed: Bayron Mckeon DO at 21:38 EST Tel [phone], Service support ,
--- NOTE | 2018-08-03 20:00 | CT_ITS ---
STUDY: CT BRAIN WITHOUT CONTRAST REASON FOR EXAM: Male, 78 years old. Fall RADIATION DOSAGE (If Supplied By Facility): CTDIvol = ( 44.99 ) mGy, DLP = ( 863.60 ) mGycm TECHNIQUE: Transaxial CT imaging of the brain was performed without administration of intravenous contrast material. Individualized dose optimization techniques were used for this CT. COMPARISON: None. FINDINGS: Normal soft tissue structures. Normal calvarium. Prominent size ventricles and extra-axial spaces with atrophy. Enlarged pituitary gland/sella mass. Mild white matter microangiopathic ischemic changes of the cerebral hemispheres. Normal basal ganglia and thalami. Normal brainstem. Normal cerebellum. There is no intracranial hemorrhage. There are no findings of an acute ischemic infarction. Normal visualized paranasal sinuses. CT/Brain/Head without Contrast IMPRESSION: Atrophy and age-related changes of the brain. Prominent pituitary gland/sellar mass. Electronically Signed: Bayron Mckeon DO at 21:07 EST Tel [phone], Service support ,
--- NOTE | 2018-08-03 20:00 | RAD_ITS ---
STUDY: X-RAY - LEFT FOOT CLINICAL: Male, 78 years old. Fall, pain. TECHNIQUE: 3 view(s) of the foot. COMPARISON: None. FINDINGS: Small chip or avulsion fracture is noted adjacent to the medial malleolus. Normal talus, calcaneus, and tarsal bones. Normal visualized subtalar, talonavicular, calcaneocuboid, tarsal and tarsometatarsal articulations. Productive degenerative changes are noted about the first metatarsal head, possibly due to sesamoid pathology such as chronic osteonecrosis. Normal tibial and fibular sesamoid bones. Normal interphalangeal joint of the great toe. Normal phalanges of the great toe. Normal second through fifth metatarsophalangeal joints. Normal interphalangeal joints and phalanges of the lesser toes. The soft tissue structures are unremarkable. RAD/Foot min 3 Views IMPRESSION: 1. Medial malleolar chip or avulsion fracture. 2. 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 Electronically Signed: Shalini Joseph MD at 22:03 EST Tel , Service support ,
[2018-08-03] MEDS: Acetaminophen 500 MG Tablet 1000 MG PO (20:20)
--- NOTE | 2018-08-03 20:50 | RAD_ITS ---
STUDY: X-RAY - LEFT ANKLE REASON FOR EXAM: Male, 78 years old. Fall, pain. TECHNIQUE: 3 view(s) of the ankle. COMPARISON: None. FINDINGS: There is a small ankle joint effusion. There is a small chip or avulsion fracture inferior to the medial malleolus. This is suspicious for an acute lesion. No additional fracture is identified. There is mild medial and lateral soft tissue swelling. Soft tissues and bony structures are otherwise unremarkable. RAD/Ankle min 3 Views IMPRESSION: Medial malleolar chip or avulsion fracture, likely acute. Small ankle joint effusion. Electronically Signed: Shalini Joseph MD at 21:57 EST Tel , Service support ,
--- NOTE | 2018-08-03 23:26 | ED.DCSUM_ITS ---
- ER Visit Summary Date of Service: 08/03/18 Chief Complaint: Fall History of Present Illness: The patient is a [address] De La Rosa and Dr. Araujo. He reports that approximately 3 this afternoon he is lost his balance and fell off curb. He has left ankle and foot pain is 1010 severity. Is much worse when he walks. He has right mid back pain is 6 out of 10 severity. Its increased deep breaths. Denies any blow to the head or loss of consciousness. However, he is on Eliquis. Review of systems: General: No fever, chills, cold sweats. Cardiovascular: No chest pain, palpitations. Respiratory: No cough, shortness of breath, dyspnea on exertion. Gastrointestinal: No abdominal pain, nausea, vomiting, diarrhea, melena, or hematochezia. Genitourinary: No dysuria, frequency, hematuria. Skin: No rash. Neuro: No headache, numbness, weakness. Physical Examination: Vitals: Stable. Afebrile. Neck: No vertebral tenderness. Full ROM without difficulty. Cleared by NEXUS criteria. Back: No vertebral tenderness. General: A&O x 3. NAD. Cardiovascular exam: Regular rate and rhythm, no murmur, rub or gallop. Respiratory exam: No crepitus. Clear to auscultation bilaterally. No wheezes or stridor. Mild tenderness palpation over the lower ribs on the right. He has no pain with anterior posterior compression of his chest. Abdominal exam: Soft, nontender, nondistended, normal bowel sounds. No pain in RUQ or LUQ specifically. No peritoneal signs. Extremity: Moderate tenderness palpation over the lateral malleolus. There is soft tissue swelling present here. He has no tenderness palpation over the medial malleolus. No pain over the proximal fibula. He is Achilles is intact. He has a normal Valle test. He has mild tenderness palpation is diffuse over the anterior surface of his forefoot. He has no pain over his calcaneus. No pain over the mid or forefoot. He has a 2+ dorsalis pedis pulse. 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 Test Results: Clinical Impression(s) from Imaging Studies Brain CT 08/03/18 20:00 IMPRESSION: Atrophy and age-related changes of the brain. Prominent pituitary gland/sellar mass. Electronically Signed: Bayron Mckeon DO at 21:07 EST Tel [phone], Service support , Foot X-Ray 08/03/18 20:00 IMPRESSION: 1. Medial malleolar chip or avulsion fracture. 2. 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 Electronically Signed: Shalini Joseph MD at 22:03 EST Tel , Service support , Ribs w/Chest X-Ray 08/03/18 20:00 IMPRESSION: RIBS: Normal x-ray examination of the ribs. CHEST: Normal x-ray examination of the chest. Electronically Signed: Bayron Mckeon DO at 21:38 EST Tel [phone], Service support , Ankle X-Ray 08/03/18 20:50 IMPRESSION: Medial malleolar chip or avulsion fracture, likely acute. Small ankle joint effusion. Electronically Signed: Shalini Joseph MD at 21:57 EST Tel , Service support , Emergency Department Course and Treatment: On repeat exam I pushed on the patient's medial malleolus. He has no pain here. There is no swelling here. Clinically I do not think that this is an acute fracture. He is rather well rounded on the x-ray. He was placed in a walking boot and is able to ambulate with a walker without significant difficulty. He was treated with Tylenol, Princeton, and Zofran p.o. Treatment Plan: Patient will be discharged with Princeton and Colace. Instructed to follow-up with Dr. Parsons in 1 week for another exam. Return to the emergency department for any worsening symptoms. Disposition: To home in improved and stable condition. Impression: 1. Fall. 2. Left ankle sprain. 3. Coagulopathy on Eliquis. This note was generated with Dragon dictation software. It may contain incorrect words, spelling, and punctuation that were not noted in review of the chart prior to signing ED Disposition - Plan for ED Patient: Disposition: Home or Assisted Living Instructions: Treating Ankle Sprains Prescriptions: Hydrocodone Bitart/Apap 5-325 [Princeton 5MG-325MG] 1 tablet PO Q6H PRN PRN 3 Days #10 tablet PRN Reason: Pain Ondansetron [Zofran Odt] 4 mg PO Q8H PRN PRN #10 tablet PRN Reason: Nausea Docusate Sodium [Colace] 100 mg PO DAILY #20 capsule Referrals: Emil Parsons DPM [STAFF PHYSICIAN] - 5-7 Days
[2018-08-03] MEDS: HYDROcodone Bitartrate/Apap 5/325 Tablet PO ×2 (23:43)
[2018-08-03] MEDS: Ondansetron ODT 4 MG Tablet PO ×2 (23:43)
[2018-08-03 23:44] VITALS: BP 145/77; RESP 18
== END 2018-08-03 23:47 | disposition home or self-care (01) ==
PROVIDERS: Emergency Provider Emergency Medicine; Family Provider Family Medicine; PCP Family Medicine
DX: S93.402A Sprain of unspecified ligament of left ankle, initial encounter (principal); W10.1XXA Fall (on)(from) sidewalk curb, initial encounter; Y93.9 Activity, unspecified; Y92.9 Unspecified place or not applicable; Y99.9 Unspecified external cause status; R79.1 Abnormal coagulation profile; I48.91 Unspecified atrial fibrillation; E11.40 Type 2 diabetes mellitus with diabetic neuropathy, unspecified; I10 Essential (primary) hypertension; M54.9 Dorsalgia, unspecified; Z79.84 Long term (current) use of oral hypoglycemic drugs; Z79.01 Long term (current) use of anticoagulants; Z79.899 Other long term (current) drug therapy; Z86.73 Personal history of transient ischemic attack (TIA), and cerebral infarction without residual deficits
CPT/HCPCS: 70450; 71101; 73610; 73630; 99284

== ENCOUNTER → 2018-10-11 08:50 | Outpatient (CLI) | payer MEDICARE, SELFPAY ==
[2018-10-03 10:54] VITALS: BMI 30.9
[2018-10-11 10:06] LABS: Absolute Lymphocyte Count 1.45 X10^3/ul (0.83-4.51); Absolute Neutrophil Count 3.6 X10^3/uL (2.0-7.7); Basophil# 0.04 X10^3/uL; Basophil% 0.7 % (0-1); Eosinophil# 0.21 X10^3/uL; Eosinophils% 3.5 % (0-5); Hematocrit 41.9 % (40-54); Hemoglobin 14.4 g/dl (13.0-16.5); Lymphocyte # 1.45 X10^3/ul (4.0); Lymphocyte % 24.4 % (19-41); Mean Corp Hgb Conc 34.4 g/gl (32-36); Mean Corpuscular Hgb 32.4 pg (27.0-32.0); Mean Corpuscular Volume 94.2 fL (80-94); Mean Platelet Vol. 10.1 fl (6.2-12.0); Monocyte# 0.62 X10^3/uL; Monocyte% 10.4 % (0-10); Neutrophil # 3.59 X10^3/uL (2.7-7.7); Neutrophil % 60.5 % (47-70); Platelet Count 190 K/mm3 (150-450); RBC Distribution Width CV 13.5 % (11.6-14.6); RBC Distribution Width SD 46.5 fl (35.1-43.9); Red Blood Count 4.45 M/mm3 (4.6-6.2); White Blood Count 5.9 K/mm3 (4.4-11.0)
[2018-10-11 10:12] LABS: POSITIVE COUNT NO; POSITIVE DIFFERENTIAL NO; POSITIVE MORPHOLOGY NO
[2018-10-11 10:20] LABS: Hemoglobin A1c 6.7 % (4.2-6.3)
[2018-10-11 10:22] LABS: ALB/GLOB Ratio 1.1 RATIO (0.9-2.4); AST(SGOT) 30 U/L (15-37); Alanine Aminotransfer ALT/SGPT 34 U/L (16-61); Albumin, Serum 3.9 g/dL (3.2-5.0); Alkaline Phosphatase 83 U/L (45-117); Anion Gap 10 (5-15); BUN 16 mg/dL (7-18); BUN/Creat Ratio 12.3 RATIO (10-20); Calcium,Total 9.1 mg/dL (8.5-10.1); Chloride 104 mmol/L (98-107); EST Glomerular Filtration Rate 57 mL/min (>60); Est Glom Filt Rate - Afr Amer 69 mL/min (>60); Globulin 3.4 g/dL (2.2-4.2); Glucose 156 mg/dL (74-106); Magnesium 2.3 mg/dL (1.6-2.6); Protein, Total 7.3 g/dL (6.4-8.2); Sodium Level 138 mmol/L (136-145)
[2018-10-11 10:26] LABS: Vitamin B12 313 pg/mL (211-911)
[2018-10-15 13:07] LABS: Vitamin B1, Thiamine 131.6 nmol/L (66.5-200.0)
== END ==
PROVIDERS: Family Provider Family Medicine; PCP Family Medicine; Referring Provider Family Medicine; Visit Provider Family Medicine
DX: E11.40 Type 2 diabetes mellitus with diabetic neuropathy, unspecified (principal); I48.91 Unspecified atrial fibrillation; I10 Essential (primary) hypertension
CPT/HCPCS: 36415; 80053; 82607; 83036; 83735; 84425; 85025

== ENCOUNTER → 2019-02-25 09:07 | Outpatient (CLI) | payer MEDICARE, SELFPAY ==
[2018-10-03 10:54] VITALS: BMI 30.9
[2019-02-25 10:05] LABS: Absolute Lymphocyte Count 1.43 X10^3/uL (0.83-4.51); Absolute Neutrophil Count 4.4 X10^3/uL (2.0-7.7); Basophil# 0.05 X10^3/uL; Basophil% 0.8 % (0-1); Hematocrit 43.6 % (40-54); Hemoglobin 14.9 g/dL (13.0-16.5); Lymphocyte # 1.43 X10^3/ul (4.0); Mean Corp Hgb Conc 34.2 g/dL (32-36); Mean Corpuscular Hgb 32.6 pg (27.0-32.0); Mean Corpuscular Volume 95.4 fL (80-94); Monocyte# 0.56 X10^3/uL; Monocyte% 8.6 % (0-10); NRBC Flagged by Analyzer 0 % (0-5); Neutrophil # 4.43 X10^3/uL (2.7-7.7); Platelet Count 174 K/mm3 (150-450); RBC Distribution Width SD 45.2 fl (35.1-43.9); Red Blood Count 4.57 M/mm3 (4.6-6.2); White Blood Count 6.5 K/mm3 (4.4-11.0)
[2019-02-25 10:38] LABS: AST(SGOT) 29 U/L (15-37); Alanine Aminotransfer ALT/SGPT 33 U/L (16-61); Albumin, Serum 3.7 g/dL (3.2-5.0); Alkaline Phosphatase 94 U/L (45-117); Anion Gap 7 (5-15); BUN 15 mg/dL (7-18); Calcium,Total 8.6 mg/dL (8.5-10.1); Chloride 107 mmol/L (98-107); Cholesterol 141 mg/dL (200); Creatinine, Serum 1.15 mg/dL (0.70-1.30); EST Glomerular Filtration Rate 65 mL/min (>60); Est Glom Filt Rate - Afr Amer 79 mL/min (>60); Globulin 3.6 g/dL (2.2-4.2); Glucose 147 mg/dL (74-106); Hemoglobin A1c 6.3 % (4.2-6.3); High Density Lipoprotein 34 mg/dL; Magnesium 1.9 mg/dL (1.6-2.6); PSA,Total- Diagnostic 0.01 ng/mL (0.0-4.0); Potassium 4.3 mmol/L (3.5-5.1); Protein, Total 7.3 g/dL (6.4-8.2); Sodium Level 139 mmol/L (136-145); Triglycerides 374 mg/dL; Very Low Density Lipoprotein 75 mg/dL (5-40)
== END ==
PROVIDERS: Family Provider Family Medicine; PCP Family Medicine; Visit Provider Family Medicine
DX: I48.91 Unspecified atrial fibrillation (principal); E11.9 Type 2 diabetes mellitus without complications; I10 Essential (primary) hypertension; Z86.73 Personal history of transient ischemic attack (TIA), and cerebral infarction without residual deficits; Z85.46 Personal history of malignant neoplasm of prostate
CPT/HCPCS: 36415; 80053; 80061; 83036; 83735; 84153; 85025

== ENCOUNTER → 2019-04-23 09:15 | Outpatient (CLI) | payer MEDICARE, SELFPAY ==
[2019-04-11 08:41] VITALS: BMI 30.8
[2019-04-23 10:26] LABS: Creatinine, Serum 1.22 mg/dL (0.70-1.30); EST Glomerular Filtration Rate 61 mL/min (>60); Est Glom Filt Rate - Afr Amer 74 mL/min (>60)
== END ==
PROVIDERS: Family Provider Family Medicine; PCP Family Medicine; Referring Provider Family Medicine; Visit Provider Physician Assistant
DX: N28.9 Disorder of kidney and ureter, unspecified (principal); M67.432 Ganglion, left wrist
CPT/HCPCS: 36415; 82565

== ENCOUNTER → 2019-06-14 09:47 | Outpatient (CLI) | payer MEDICARE, SELFPAY ==
[2019-04-11 08:41] VITALS: BMI 30.8
[2019-06-14 09:49] LABS: Bacteria 0 SEEN /hpf (None Seen); Mucous, Urine 0 SEEN /hpf (<or=2+); Red Blood Cells-Urine 0 SEEN /hpf (0-5); Squamous Epithelial Cells - UA 0 SEEN /hpf (0-5); White Blood Cells 0 SEEN /hpf (0-5)
[2019-06-14 12:43] LABS: Absolute Lymphocyte Count 1.17 X10^3/uL (0.83-4.51); Absolute Neutrophil Count 3.2 X10^3/uL (2.0-7.7); Basophil# 0.05 X10^3/uL; Eosinophil# 0.04 X10^3/uL; Eosinophils% 0.8 % (0-5); Hematocrit 42.6 % (40-54); Hemoglobin 14.4 g/dL (13.0-16.5); Lymphocyte # 1.17 X10^3/ul (4.0); Lymphocyte % 23.7 % (19-41); Mean Corp Hgb Conc 33.8 g/dL (32-36); Mean Corpuscular Hgb 31.9 pg (27.0-32.0); Mean Corpuscular Volume 94.2 fL (80-94); Mean Platelet Vol. 10.4 fl (6.2-12.0); Monocyte# 0.48 X10^3/uL; Monocyte% 9.7 % (0-10); NRBC Flagged by Analyzer 0 % (0-5); Neutrophil # 3.17 X10^3/uL (2.7-7.7); Neutrophil % 64.2 % (47-70); Platelet Count 189 K/mm3 (150-450); RBC Distribution Width CV 13.1 % (11.6-14.6); RBC Distribution Width SD 44.9 fl (35.1-43.9); Red Blood Count 4.52 M/mm3 (4.6-6.2); White Blood Count 4.9 K/mm3 (4.4-11.0)
[2019-06-14 12:47] LABS: AST(SGOT) 28 U/L (15-37); Alanine Aminotransfer ALT/SGPT 55 U/L (16-61); Albumin, Serum 3.7 g/dL (3.2-5.0); Alkaline Phosphatase 90 U/L (45-117); Anion Gap 6 (5-15); BUN 12 mg/dL (7-18); BUN/Creat Ratio 10.2 RATIO (10-20); Calcium,Total 9.2 mg/dL (8.5-10.1); Chloride 104 mmol/L (98-107); Cholesterol 147 mg/dL (200); Creatinine, Serum 1.18 mg/dL (0.70-1.30); EST Glomerular Filtration Rate 63 mL/min (>60); Est Glom Filt Rate - Afr Amer 77 mL/min (>60); Globulin 3.6 g/dL (2.2-4.2); Glucose 197 mg/dL (74-106); High Density Lipoprotein 40 mg/dL; Potassium 4.1 mmol/L (3.5-5.1); Protein, Total 7.3 g/dL (6.4-8.2); Sodium Level 135 mmol/L (136-145); Triglycerides 237 mg/dL; Very Low Density Lipoprotein 47 mg/dL (5-40)
[2019-06-14 12:55] LABS: Hemoglobin A1c 6.4 % (4.2-6.3)
[2019-06-14 16:54] LABS: Microalbumin:Creatinine Ratio 6.7 mg/g CRE (<30 mg/g CRE)
[2019-06-14 22:10] LABS: Color, Urine Yellow (Yellow); Glucose, Dipstick Normal (Normal); Ketone-Dipstick Negative (Negative); Leukocyte Esterase-Dipstick Negative /ul (Negative); Nitrite-Dipstick Negative (Negative); Occult Blood-Urine Negative /ul (Negative); Protein-Dipstick Negative (Negative); Urine Bilirubin Dipstick Negative (Negative); Urine Clarity Clear (Clear); Urine Urobilinogen Normal (Normal)
== END ==
PROVIDERS: Family Provider Family Medicine; PCP Family Medicine; Referring Provider Family Medicine; Visit Provider Family Medicine
DX: E11.9 Type 2 diabetes mellitus without complications (principal); I10 Essential (primary) hypertension; I48.91 Unspecified atrial fibrillation; Z86.73 Personal history of transient ischemic attack (TIA), and cerebral infarction without residual deficits
CPT/HCPCS: 36415; 80053; 80061; 81001; 82043; 82570; 83036; 85025

== ENCOUNTER → 2019-09-17 08:27 | Outpatient (CLI) | payer MEDICARE, SELFPAY ==
[2019-04-11 08:41] VITALS: BMI 30.8
[2019-09-17 10:17] LABS: ALB/GLOB Ratio 1.1 RATIO (0.9-2.4); AST(SGOT) 21 U/L (15-37); Alanine Aminotransfer ALT/SGPT 28 U/L (16-61); Alkaline Phosphatase 91 U/L (45-117); Anion Gap 6 (5-15); BUN 16 mg/dL (7-18); Calcium,Total 9.4 mg/dL (8.5-10.1); Chloride 106 mmol/L (98-107); Creatinine, Serum 1.14 mg/dL (0.70-1.30); EST Glomerular Filtration Rate 66 mL/min (>60); Est Glom Filt Rate - Afr Amer 80 mL/min (>60); Globulin 3.6 g/dL (2.2-4.2); Glucose 181 mg/dL (74-106); Protein, Total 7.6 g/dL (6.4-8.2); Sodium Level 137 mmol/L (136-145)
[2019-09-17 10:18] LABS: Hemoglobin A1c 7.1 % (4.2-6.3)
== END ==
PROVIDERS: PCP Family Medicine; Referring Provider Family Medicine; Visit Provider Family Medicine
DX: E11.9 Type 2 diabetes mellitus without complications (principal)
CPT/HCPCS: 36415; 80053; 83036

== ENCOUNTER → 2019-12-17 09:47 | Outpatient (CLI) | payer MEDICARE, SELFPAY ==
[2019-04-11 08:41] VITALS: BMI 30.8
[2019-12-17 13:04] LABS: Absolute Lymphocyte Count 1.14 X10^3/uL (0.83-4.51); Basophil# 0.04 X10^3/uL; Basophil% 0.8 % (0-1); Eosinophil# 0.06 X10^3/uL; Eosinophils% 1.3 % (0-5); Hematocrit 42.2 % (40-54); Hemoglobin 14.1 g/dL (13.0-16.5); Lymphocyte # 1.14 X10^3/ul (4.0); Lymphocyte % 24.1 % (19-41); Mean Corp Hgb Conc 33.4 g/dL (32-36); Mean Corpuscular Hgb 32.9 pg (27.0-32.0); Mean Corpuscular Volume 98.4 fL (80-94); Monocyte# 0.46 X10^3/uL; Monocyte% 9.7 % (0-10); NRBC Flagged by Analyzer 0 % (0-5); Neutrophil % 63.5 % (47-70); Platelet Count 178 K/mm3 (150-450); RBC Distribution Width CV 13.5 % (11.6-14.6); RBC Distribution Width SD 48.8 fl (35.1-43.9); Red Blood Count 4.29 M/mm3 (4.6-6.2); White Blood Count 4.7 K/mm3 (4.4-11.0)
[2019-12-17 13:28] LABS: ALB/GLOB Ratio 1.3 RATIO (0.9-2.4); AST(SGOT) 21 U/L (15-37); Alanine Aminotransfer ALT/SGPT 27 U/L (16-61); Albumin, Serum 3.8 g/dL (3.2-5.0); Alkaline Phosphatase 98 U/L (45-117); Anion Gap 8 (5-15); BUN 14 mg/dL (7-18); BUN/Creat Ratio 12.8 RATIO (10-20); Calcium,Total 8.5 mg/dL (8.5-10.1); Chloride 105 mmol/L (98-107); Cholesterol 169 mg/dL (200); Creatinine, Serum 1.09 mg/dL (0.70-1.30); EST Glomerular Filtration Rate 69 mL/min (>60); Est Glom Filt Rate - Afr Amer 84 mL/min (>60); Glucose 189 mg/dL (74-106); High Density Lipoprotein 37 mg/dL; Magnesium 2.3 mg/dL (1.6-2.6); Potassium 4.2 mmol/L (3.5-5.1); Protein, Total 6.8 g/dL (6.4-8.2); Sodium Level 138 mmol/L (136-145); Triglycerides 351 mg/dL; Very Low Density Lipoprotein 70 mg/dL (5-40)
[2019-12-17 16:54] LABS: Hemoglobin A1c 6.5 % (3.8-5.6)
== END ==
PROVIDERS: PCP Family Medicine; Referring Provider Family Medicine; Visit Provider Family Medicine
DX: I48.91 Unspecified atrial fibrillation (principal); E11.9 Type 2 diabetes mellitus without complications; I25.10 Atherosclerotic heart disease of native coronary artery without angina pectoris
CPT/HCPCS: 36415; 80053; 80061; 83036; 83735; 85025

== ENCOUNTER → 2020-02-25 08:33 | Outpatient (CLI) | payer MEDICARE, SELFPAY ==
[2020-02-04 14:10] VITALS: BMI 29.5
== END ==
PROVIDERS: PCP Family Medicine; Referring Provider Family Medicine; Visit Provider Family Medicine
DX: Z00.00 Encounter for general adult medical examination without abnormal findings (principal)

== ENCOUNTER → 2020-05-12 09:09 | Outpatient (CLI) | payer MEDICARE, SELFPAY ==
[2020-02-04 14:10] VITALS: BMI 29.5
[2020-05-12 09:45] LABS: Absolute Lymphocyte Count 1.03 X10^3/uL (0.83-4.51); Basophil# 0.04 X10^3/uL; Basophil% 0.7 % (0-1); Eosinophil# 0.01 X10^3/uL; Eosinophils% 0.2 % (0-5); Hematocrit 42.7 % (40-54); Hemoglobin 14.4 g/dL (13.0-16.5); Lymphocyte # 1.03 X10^3/ul (4.0); Lymphocyte % 18.6 % (19-41); Mean Corp Hgb Conc 33.7 g/dL (32-36); Mean Corpuscular Hgb 32.3 pg (27.0-32.0); Mean Corpuscular Volume 95.7 fL (80-94); Mean Platelet Vol. 9.9 fl (6.2-12.0); Monocyte# 0.46 X10^3/uL; Monocyte% 8.3 % (0-10); NRBC Flagged by Analyzer 0 % (0-5); Neutrophil # 3.96 X10^3/uL (2.7-7.7); Neutrophil % 71.7 % (47-70); Platelet Count 176 K/mm3 (150-450); RBC Distribution Width CV 13.1 % (11.6-14.6); RBC Distribution Width SD 45.6 fl (35.1-43.9); Red Blood Count 4.46 M/mm3 (4.6-6.2); White Blood Count 5.5 K/mm3 (4.4-11.0)
[2020-05-12 10:02] LABS: Hemoglobin A1c 6.7 % (3.8-5.6)
[2020-05-12 10:25] LABS: ALB/GLOB Ratio 1.1 RATIO (0.9-2.4); AST(SGOT) 20 U/L (15-37); Alanine Aminotransfer ALT/SGPT 32 U/L (16-61); Albumin, Serum 3.8 g/dL (3.2-5.0); Alkaline Phosphatase 101 U/L (45-117); Anion Gap 8 (5-15); BUN 19 mg/dL (7-18); BUN/Creat Ratio 16.5 RATIO (10-20); Calcium,Total 8.8 mg/dL (8.5-10.1); Chloride 108 mmol/L (98-107); Cholesterol 167 mg/dL (200); Creatinine, Serum 1.15 mg/dL (0.70-1.30); EST Glomerular Filtration Rate 65 mL/min (>60); Est Glom Filt Rate - Afr Amer 79 mL/min (>60); Globulin 3.6 g/dL (2.2-4.2); Glucose 205 mg/dL (74-106); High Density Lipoprotein 36 mg/dL; Magnesium 2.1 mg/dL (1.6-2.6); Protein, Total 7.4 g/dL (6.4-8.2); Sodium Level 139 mmol/L (136-145); Triglycerides 323 mg/dL; Very Low Density Lipoprotein 65 mg/dL (5-40)
[2020-05-12 12:50] LABS: Microalbumin,Random Urine 16.2 mg/L (NO RANGE EST.); Microalbumin:Creatinine Ratio 9.5 mg/g CRE (<30 mg/g CRE)
== END ==
PROVIDERS: PCP Family Medicine; Visit Provider Family Medicine
DX: E11.9 Type 2 diabetes mellitus without complications (principal); I48.91 Unspecified atrial fibrillation
CPT/HCPCS: 36415; 80053; 80061; 82043; 82570; 83036; 83735; 85025

== ENCOUNTER → 2020-05-27 16:14 | Outpatient (CLI) | payer MEDICARE, SELFPAY ==
[2020-02-04 14:10] VITALS: BMI 29.5
--- NOTE | 2020-05-27 16:38 | MRI_ITS ---
HISTORY: recheck pituitary adenoma, tremors TECHNIQUE: Multiplanar, multisequence MRI of the brain was obtained without and with IV contrast. IV Contrast dosage and agent: 20 ml Dotarem Number of images including paperwork: 363 COMPARISON: 05/01/2018 FINDINGS: INTRACRANIAL HEMORRHAGE: No evidence of intracranial hemorrhage. BRAIN PARENCHYMA: No acute infarct. Cerebrum, cerebellum and brainstem are unremarkable. A mass is present in the sella turcica measuring 1.7 x 1.6 x 1.8 cm (AP/TV/CC), unchanged with measurements near the same level and orientation. The mass is similar in signal intensity and enhancement pattern compared to previous. 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 Generalized atrophy. No mass effect or midline shift. CONTRAST: No abnormal enhancement. CSF SPACES: Appropriate for age. No hydrocephalus. Patent basilar cisterns. VASCULAR SYSTEM: Normal flow voids in the major intracranial circulation. ORBITS: Unremarkable. PARANASAL SINUSES: No air-fluid level. MASTOID AIR CELLS: No abnormal signal intensity. CALVARIUM: Unremarkable. SOFT TISSUES: Unremarkable. 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 at 0728 Reported and signed by: Greta Sanchez MD Electronically Signed: Greta Sanchez MD at 7:28 EST Tel , Service support ,
== END ==
PROVIDERS: PCP Family Medicine; Referring Provider Family Medicine; Visit Provider Family Medicine
DX: D35.2 Benign neoplasm of pituitary gland (principal)
CPT/HCPCS: 70553; A9575

== ENCOUNTER → 2020-09-07 10:17 | Outpatient (CLI) | payer MEDICARE, SELFPAY ==
[2020-02-04 14:10] VITALS: BMI 29.5
[2020-09-07 12:23] LABS: Absolute Lymphocyte Count 1.22 X10^3/uL (0.83-4.51); Absolute Neutrophil Count 3.6 X10^3/uL (2.0-7.7); Basophil# 0.06 X10^3/uL; Basophil% 1.1 % (0-1); Eosinophil# 0.06 X10^3/uL; Eosinophils% 1.1 % (0-5); Hematocrit 43.5 % (40-54); Hemoglobin 14.8 g/dL (13.0-16.5); Lymphocyte # 1.22 X10^3/ul (4.0); Lymphocyte % 22.5 % (19-41); Mean Corpuscular Volume 97.1 fL (80-94); Mean Platelet Vol. 10.2 fl (6.2-12.0); Monocyte# 0.46 X10^3/uL; Monocyte% 8.5 % (0-10); NRBC Flagged by Analyzer 0 % (0-5); Neutrophil # 3.59 X10^3/uL (2.7-7.7); Neutrophil % 66.2 % (47-70); Platelet Count 178 K/mm3 (150-450); RBC Distribution Width CV 13.4 % (11.6-14.6); RBC Distribution Width SD 47.7 fl (35.1-43.9); Red Blood Count 4.48 M/mm3 (4.6-6.2); White Blood Count 5.4 K/mm3 (4.4-11.0)
[2020-09-07 12:40] LABS: AST(SGOT) 29 U/L (15-37); Alanine Aminotransfer ALT/SGPT 29 U/L (16-61); Albumin, Serum 3.6 g/dL (3.2-5.0); Alkaline Phosphatase 97 U/L (45-117); Anion Gap 2 (5-15); BUN 12 mg/dL (7-18); BUN/Creat Ratio 10.5 RATIO (10-20); Calcium,Total 8.9 mg/dL (8.5-10.1); Chloride 105 mmol/L (98-107); Cholesterol 174 mg/dL (200); Creatinine, Serum 1.14 mg/dL (0.70-1.30); EST Glomerular Filtration Rate 66 mL/min (>60); Est Glom Filt Rate - Afr Amer 80 mL/min (>60); Globulin 3.7 g/dL (2.2-4.2); Glucose 214 mg/dL (74-106); High Density Lipoprotein 38 mg/dL; Magnesium 2.3 mg/dL (1.6-2.6); Potassium 4.4 mmol/L (3.5-5.1); Protein, Total 7.3 g/dL (6.4-8.2); Sodium Level 131 mmol/L (136-145); Triglycerides 395 mg/dL; Very Low Density Lipoprotein 79 mg/dL (5-40)
[2020-09-07 13:09] LABS: Hemoglobin A1c 7.3 % (3.8-5.6)
== END ==
PROVIDERS: PCP Family Medicine; Visit Provider Family Medicine
DX: E11.9 Type 2 diabetes mellitus without complications (principal); I48.91 Unspecified atrial fibrillation; I10 Essential (primary) hypertension; Z86.73 Personal history of transient ischemic attack (TIA), and cerebral infarction without residual deficits
CPT/HCPCS: 36415; 80053; 80061; 83036; 83735; 85025

== ENCOUNTER → 2020-09-17 08:46 | Outpatient (CLI) | payer MEDICARE, SELFPAY ==
[2020-02-04 14:10] VITALS: BMI 29.5
[2020-09-17 12:36] LABS: Anion Gap 6 (5-15); BUN 18 mg/dL (7-18); BUN/Creat Ratio 15.8 RATIO (10-20); Chloride 103 mmol/L (98-107); Creatinine, Serum 1.14 mg/dL (0.70-1.30); EST Glomerular Filtration Rate 66 mL/min (>60); Est Glom Filt Rate - Afr Amer 79 mL/min (>60); Glucose 240 mg/dL (74-106); PSA,Total- Diagnostic < 0.01 ng/mL (0.0-4.0); Potassium 3.9 mmol/L (3.5-5.1); Sodium Level 135 mmol/L (136-145)
== END ==
PROVIDERS: PCP Family Medicine; Referring Provider Family Medicine; Visit Provider Family Medicine
DX: Z85.46 Personal history of malignant neoplasm of prostate (principal)
CPT/HCPCS: 36415; 80048; 84153

== ENCOUNTER → 2020-11-06 11:51 | Outpatient (CLI) | payer MEDICARE, SELFPAY ==
[2020-02-04 14:10] VITALS: BMI 29.5
[2020-11-06 14:37] LABS: Absolute Lymphocyte Count 1.12 X10^3/uL (0.83-4.51); Absolute Neutrophil Count 4.1 X10^3/uL (2.0-7.7); Basophil# 0.06 X10^3/uL; Eosinophil# 0.01 X10^3/uL; Eosinophils% 0.2 % (0-5); Hematocrit 39.7 % (40-54); Hemoglobin 13.9 g/dL (13.0-16.5); Lymphocyte # 1.12 X10^3/ul (0.83-4.51); Lymphocyte % 19.2 % (19-41); Mean Corpuscular Hgb 33.3 pg (27.0-32.0); Mean Platelet Vol. 10.3 fl (6.2-12.0); Monocyte% 8.6 % (0-10); NRBC Flagged by Analyzer 0 % (0-5); Neutrophil # 4.11 X10^3/uL (2.7-7.7); Neutrophil % 70.3 % (47-70); Platelet Count 191 K/mm3 (150-450); RBC Distribution Width CV 13.2 % (11.6-14.6); RBC Distribution Width SD 45.3 fl (35.1-43.9); Red Blood Count 4.18 M/mm3 (4.6-6.2); White Blood Count 5.8 K/mm3 (4.4-11.0)
[2020-11-06 15:02] LABS: ALB/GLOB Ratio 1.2 RATIO (0.9-2.4); AST(SGOT) 17 U/L (15-37); Alanine Aminotransfer ALT/SGPT 32 U/L (16-61); Albumin, Serum 3.9 g/dL (3.2-5.0); Alkaline Phosphatase 129 U/L (45-117); Anion Gap 9 (5-15); BUN 17 mg/dL (7-18); BUN/Creat Ratio 15.5 RATIO (10-20); Calcium,Total 8.9 mg/dL (8.5-10.1); Chloride 101 mmol/L (98-107); Cholesterol 182 mg/dL (200); EST Glomerular Filtration Rate 68 mL/min (>60); Est Glom Filt Rate - Afr Amer 83 mL/min (>60); Globulin 3.2 g/dL (2.2-4.2); Glucose 234 mg/dL (74-106); High Density Lipoprotein 42 mg/dL; Potassium 4.4 mmol/L (3.5-5.1); Protein, Total 7.1 g/dL (6.4-8.2); Sodium Level 136 mmol/L (136-145); Triglycerides 265 mg/dL; Very Low Density Lipoprotein 53 mg/dL (5-40)
[2020-11-06 15:03] LABS: Hemoglobin A1c 7.7 % (3.8-5.6)
== END ==
PROVIDERS: PCP Family Medicine; Referring Provider Family Medicine; Visit Provider Family Medicine
DX: E11.9 Type 2 diabetes mellitus without complications (principal)
CPT/HCPCS: 36415; 80053; 80061; 83036; 85025